=== PATIENT | male | born 1970 | race Caucasian/White ===

== ENCOUNTER 2019-04-22 20:23 | Emergency (ER) | payer OTHER | END 2019-04-22 23:21 | disposition home or self-care (01) | LOC: JER 20:23 → JERFT 23:21 ==

== ENCOUNTER 2019-09-29 08:51 | Day surgery (SDC) | payer OTHER ==
[2019-09-28 12:41] VITALS: BMI 33.0
[2019-09-29 10:23] VITALS: TEMP 98.2
[2019-09-29 14:16] VITALS: BP 113/75; PULSE 71
--- NOTE | 2019-10-02 17:07 | PATH ---
Surgical Pathology Report Patient Name: OSMAN CIFUENTES [facility]. Rec. #: [id number] /Age/Gender: 1970 (Age: 49) / M Account: [id number] Location: U-ENDOSCOPY Taken: 09/29/2019 Received: 09/29/2019 Reported: 10/02/2019 Physicians: Donny Galloway D.O. Specimen(s) Received A: SIGMOID POLYPS B: RECTAL POLYP C: RECTUM D: PERIANAL POLYP Clinical History Colon screening Postoperative diagnosis: Diverticulosis, polyps Final Diagnosis A. SIGMOID COLON, POLYPS, BIOPSY: TUBULAR ADENOMA. HYPERPLASTIC POLYP. B. RECTAL POLYP, POLYPECTOMY: SESSILE SERRATED POLYP. C. RECTUM, BIOPSY: COLONIC MUCOSA WITH FOCAL ACTIVE COLITIS. SEE COMMENT. D. PERIANAL POLYP, BIOPSY: POLYPOID SQUAMOUS MUCOSA WITH DILATED VESSELS AND FIBROUS STROMA SUGGESTIVE OF FIBROEPITHELIAL POLYP. HPV IN SITU HYBRIDIZATION (HIGH AND LOW RISK), ARE NEGATIVE. Comment: Part C, Findings are non-specific. Although acute self-limited colitis is a consideration, among other conditions, the possibility of early inflammatory bowel disease cannot be completely excluded. Suggest clinical and endoscopic correlation. Electronically Signed Hiwot Bailey M.D. Gross Description A. Received in formalin, labeled "biopsy sigmoid polyps" are 2 cavanaugh, irregular portions of soft tissue measuring 0.2 and 0.4 cm. in greatest dimension. The specimens are submitted in toto in one cassette. B. Received in formalin, labeled "rectal polyp" is a cavanaugh, irregular portion of soft tissue measuring 0.4 cm. in greatest dimension. The specimen is submitted in toto in one cassette. C. Received in formalin, labeled "biopsy rectum" are 2 cavanaugh, irregular portions of soft tissue measuring 0.1 and 0.2 cm. in greatest dimension. The specimens are submitted in toto in one cassette. D. Received in formalin, labeled "biopsy perianal polyp" is a cavanaugh, irregular portion of soft tissue measuring 0.2 cm. in greatest dimension. The specimen is submitted in toto in one cassette. 09/29/201909/29/2019
== END 2019-09-29 11:15 | disposition home or self-care (01) ==
LOC: JASU-ENDO 08:51
PROVIDERS: ATTEND Internal Medicine Gastroenterology
PROC: 0DBN8ZX Excision of Sigmoid Colon, Via Natural or Artificial Opening Endoscopic, Diagnostic (ICD-10-PCS; 2019-09-29)
PROC: 0DBP8ZX Excision of Rectum, Via Natural or Artificial Opening Endoscopic, Diagnostic (ICD-10-PCS; principal; 2019-09-29 08:15)
DX: K57.30 Diverticulosis of large intestine without perforation or abscess without bleeding (principal); K62.1 Rectal polyp; D12.5 Benign neoplasm of sigmoid colon; K64.4 Residual hemorrhoidal skin tags
CPT/HCPCS: 88305-TC

== ENCOUNTER 2019-10-08 10:15 | Day surgery (SDC) | payer OTHER ==
[2019-10-07 12:51] VITALS: BMI 33.0
[2019-10-08 10:56] VITALS: BP 118/74; PULSE 76; TEMP 98
== END 2019-10-08 11:30 | disposition home or self-care (01) ==
LOC: JASU-ENDO 10:15
PROVIDERS: ATTEND Internal Medicine Gastroenterology
DX: Z53.8 Procedure and treatment not carried out for other reasons (principal)

== ENCOUNTER 2019-12-08 08:24 | Day surgery (SDC) | payer OTHER ==
[2019-12-04 15:18] VITALS: BMI 33.0
[2019-12-08 10:33] VITALS: BP 122/83; PULSE 76; TEMP 98
--- NOTE | 2019-12-10 15:37 | PATH ---
Surgical Pathology Report Patient Name: OSMAN CIFUENTES [facility]. Rec. #: [id number] /Age/Gender: 1970 (Age: 49) / M Account: [id number] Location: U-ENDOSCOPY Taken: 12/08/2019 Received: 12/08/2019 Reported: 12/10/2019 Physicians: Donny Galloway D.O. Specimen(s) Received BX BODY Clinical History GERD Postoperative diagnosis: Gastritis Final Diagnosis BODY OF STOMACH, BIOPSY: GASTRIC MUCOSA WITH ACTIVE CHRONIC GASTRITIS. IMMUNOSTAIN FOR H. PYLORI IS POSITIVE. NEGATIVE FOR INTESTINAL METAPLASIA. Immunohistochemistry stain H. Pylori performed at [place], [place] ([id number]) interpreted at [facility]. Positive and negative controls (internal if applicable) show appropriate results. Electronically Signed Salvador Do M.D. Gross Description Received in formalin, labeled "biopsy body of stomach" are 4 cavanaugh, irregular portions of soft tissue ranging from 0.1-0.6 cm. in greatest dimension. The specimens are submitted in toto in one cassette. /12/08/2019 saudi12/08/2019
== END 2019-12-08 10:20 | disposition home or self-care (01) ==
LOC: JASU-ENDO 08:24
PROVIDERS: ATTEND Internal Medicine Gastroenterology
PROC: 0DB68ZX Excision of Stomach, Via Natural or Artificial Opening Endoscopic, Diagnostic (ICD-10-PCS; principal; 2019-12-08 09:00)
DX: K29.50 Unspecified chronic gastritis without bleeding (principal); B96.81 Helicobacter pylori [H. pylori] as the cause of diseases classified elsewhere

== ENCOUNTER 2020-09-20 19:48 | Emergency (ER) | payer OTHER ==
[2020-09-20 20:02] VITALS: BP 128/88; PULSE 81; TEMP 98.4; BMI 32.3
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
== END 2020-09-20 20:33 | disposition home or self-care (01) ==
LOC: JER 19:48 → JERFT 19:48
DX: S80.02XA Contusion of left knee, initial encounter (principal); S16.1XXA Strain of muscle, fascia and tendon at neck level, initial encounter
CPT/HCPCS: 99283-25

== ENCOUNTER 2023-03-02 13:13 | Emergency (ER) | payer OTHER ==
[2023-03-02 13:29] VITALS: BP 116/65; PULSE 76; RESP 18; TEMP 98.3; BMI 29.8
[2023-03-02] MEDS ORDERED: SODIUM CHLORIDE 0.9% 500 ML INFUS.BAG IV ONE (14:32)
[2023-03-02] MEDS ORDERED: KETOROLAC TROMETHAMINE 15 MG/ML VIAL IVPUSH ONE (14:32)
[2023-03-02] MEDS ORDERED: KETOROLAC TROMETHAMINE 15 MG/ML VIAL ONE (14:40)
[2023-03-02 15:25] LABS: BASO % 0.5 % (0-2.0); EOS % 0.4 % (0-4.5); HEMATOCRIT 38.9 % (35.4-49); HEMOGLOBIN 13.4 GM/dL (11.7-16.9); LYMPH % 32.8 % (8-40); MCH 29.5 pg (25.7-33.7); MCHC 34.3 g/dl (32.0-35.9); MEAN CELL VOLUME 85.8 fl (80-96); MONO % 5.2 % (3.8-10.2); NEUT % 61.1 % (42.8-82.8); PLATELET COUNT 182 10^3/uL (134-434); RBC 4.54 M/mm3 (4.00-5.60); RDW 13.7 % (11.9-15.9); WHITE BLOOD COUNT 5.3 K/mm3 (4.0-10.0)
[2023-03-02 15:54] LABS: ALBUMIN 3.8 g/dl (3.4-5.0); BLOOD UREA NITROGEN 13.8 mg/dL (7-18); CALCIUM 9.2 mg/dL (8.5-10.1)
[2023-03-02 15:58] LABS: CREATININE 0.6 mg/dL (0.55-1.3)
[2023-03-02 15:59] LABS: BILIRUBIN,TOTAL 0.5 mg/dL (0.2-1); TOT PROT 7.3 g/dl (6.4-8.2)
[2023-03-02] MEDS ORDERED: ACETAMINOPHEN 1000 MG/100 ML BAG IVPB ONE (16:26)
[2023-03-02] MEDS ORDERED: METHOCARBAMOL 500 MG TABLET PO ONE ×2 (16:26→20:48)
[2023-03-02] MEDS ORDERED: LIDOCAINE 5% TOPICAL PATCH TP ONE (16:26)
[2023-03-02] MEDS ORDERED: METHOCARBAMOL 500 MG TABLET ONE ×2 (16:36→20:49)
[2023-03-02] MEDS ORDERED: ACETAMINOPHEN INJECTION 100 ML IVPB ONE (16:36)
[2023-03-02] MEDS ORDERED: LIDOCAINE 5% TOPICAL PATCH ONE (16:36)
[2023-03-02 16:45] LABS: URINE APPEARANCE CLEAR; URINE COLOR YELLOW
[2023-03-02 16:46] LABS: URINE BILIRUBIN NEGATIVE (NEGATIVE)
[2023-03-02 16:47] LABS: PH,URINE 5.5 (5.0-8.0); URINE GLUCOSE (UA) 3+ (NEGATIVE); URINE KETONE 3+ (NEGATIVE); URINE LEUK ESTERASE NEGATIVE (NEGATIVE); URINE NITRITE NEGATIVE (NEGATIVE); URINE PROTEIN NEGATIVE (NEGATIVE); URINE UROBILINOGEN 0.2 mg/dL (0.2-1.0)
[2023-03-02 16:48] LABS: EPI CELLS 5 /uL (0-25.1); HYALINE CASTS 0.12 /uL (0-3.1); URINE BACTERIA 15 /uL (0-1359); URINE RBC 18 /uL (0-23.9); URINE WBC 8 /uL (0-25.8)
[2023-03-02] MEDS ORDERED: KETOROLAC TROMETHAMINE 30 MG/1 ML VIAL IVPUSH ONE (20:48)
[2023-03-02] MEDS ORDERED: KETOROLAC TROMETHAMINE 30 MG/1 ML VIAL ONE (20:50)
[2023-03-02] MEDS ORDERED: LIDOCAINE PATCH REMOVAL MC SCH (22:00)
== END 2023-03-02 20:57 | disposition home or self-care (01) ==
LOC: JER 13:13
PROC: 3E033NZ Introduction of Analgesics, Hypnotics, Sedatives into Peripheral Vein, Percutaneous Approach (ICD-10-PCS; principal; 2023-03-02)
PROC: 3E0333Z Introduction of Anti-inflammatory into Peripheral Vein, Percutaneous Approach (ICD-10-PCS; 2023-03-02)
DX: R10.9 Unspecified abdominal pain (principal); E11.9 Type 2 diabetes mellitus without complications; E30.0 Delayed puberty; N50.811 Right testicular pain; Z79.84 Long term (current) use of oral hypoglycemic drugs; Z20.822 Contact with and (suspected) exposure to COVID-19
CPT/HCPCS: 0241U-QW; 36415; 74176-TC; 74177-TC; 80053; 81003; 83036; 83735; 84443; 85025; 87086; 99285-25; Q9967

== ENCOUNTER 2023-06-24 04:40 | Emergency (ER) | payer OTHER ==
[2023-06-24 04:53] VITALS: BMI 30.7
[2023-06-24] MEDS ORDERED: KETOROLAC TROMETHAMINE 30 MG/1 ML VIAL IM ONE (05:09)
[2023-06-24] MEDS ORDERED: DEXAMETHASONE SOD PHOSPHATE 10 MG/1 ML VIAL IM ONE (05:10)
[2023-06-24] MEDS ORDERED: DEXAMETHASONE SOD PHOSPHATE 10 MG/1 ML VIAL ONE (05:19)
[2023-06-24] MEDS ORDERED: KETOROLAC TROMETHAMINE 30 MG/1 ML VIAL ONE (05:19)
[2023-06-24 06:59] LABS: THROAT:GRP A STREP DETECTED (NOTDETECTED)
[2023-06-24 07:36] VITALS: BP 102/71; PULSE 80; RESP 16; TEMP 97.8
== END 2023-06-24 07:34 | disposition home or self-care (01) ==
LOC: JER 04:40
PROC: 3E0233Z Introduction of Anti-inflammatory into Muscle, Percutaneous Approach (ICD-10-PCS; principal; 2023-06-24)
PROC: 3E023GC Introduction of Other Therapeutic Substance into Muscle, Percutaneous Approach (ICD-10-PCS; 2023-06-24)
DX: R07.0 Pain in throat (principal); R13.10 Dysphagia, unspecified; R05.9 Cough, unspecified; J02.0 Streptococcal pharyngitis; Z20.822 Contact with and (suspected) exposure to COVID-19
CPT/HCPCS: 0241U-QW; 87651; 99284-25; J1100

== ENCOUNTER 2023-11-01 16:06 | Emergency (ER) | payer OTHER ==
[2023-11-01 16:16] VITALS: BP 114/72; PULSE 78; RESP 18; TEMP 97.6; BMI 33.4
[2023-11-01] MEDS ORDERED: ONDANSETRON 4 MG/2 ML VIAL IVPUSH ONE (16:49)
[2023-11-01] MEDS ORDERED: FAMOTIDINE 20 MG/50 ML IVPB 20 MG/50 ML MG IVPB ONE ×2 (16:49→17:42)
[2023-11-01] MEDS ORDERED: SODIUM CHLORIDE 0.9% 500 ML INFUS.BAG IV ONE (16:49)
[2023-11-01] MEDS ORDERED: ONDANSETRON 4 MG/2 ML VIAL ONE (17:42)
[2023-11-01 17:48] LABS: BASO % 0.6 % (0-2.0); EOS % 1.4 % (0-4.5); HEMATOCRIT 42.9 % (35.4-49); HEMOGLOBIN 14.2 GM/dL (11.7-16.9); LYMPH % 26.4 % (8-40); MCHC 33.1 g/dl (32.0-35.9); MEAN CELL VOLUME 87.4 fl (80-96); MONO % 6.9 % (3.8-10.2); NEUT % 64.7 % (42.8-82.8); PLATELET COUNT 177 10^3/uL (134-434); RBC 4.91 M/mm3 (4.00-5.60); RDW 15.1 % (11.9-15.9); WHITE BLOOD COUNT 4.7 K/mm3 (4.0-10.0)
[2023-11-01 17:53] LABS: EPI CELLS 1 /uL (0-25.1); HYALINE CASTS 1 /uL (0-3.1); PH,URINE 5.5 (5.0-8.0); URINE APPEARANCE CLEAR; URINE BACTERIA 7 /uL (0-1359); URINE BILIRUBIN NEGATIVE (NEGATIVE); URINE COLOR DK YELLOW; URINE GLUCOSE (UA) NEGATIVE (NEGATIVE); URINE KETONE TRACE (NEGATIVE); URINE LEUK ESTERASE NEGATIVE (NEGATIVE); URINE NITRITE NEGATIVE (NEGATIVE); URINE PROTEIN 1+ (NEGATIVE); URINE RBC 8 /uL (0-23.9); URINE WBC 8 /uL (0-25.8)
[2023-11-01 18:07] LABS: POTASSIUM 3.5 mmol/L (3.5-5.1)
[2023-11-01 18:09] LABS: ALBUMIN 3.6 g/dl (3.4-5.0); BLOOD UREA NITROGEN 14.5 mg/dL (7-18); CALCIUM 8.5 mg/dL (8.5-10.1)
[2023-11-01 18:12] LABS: CREATININE 0.8 mg/dL (0.55-1.3)
[2023-11-01 18:14] LABS: BILIRUBIN,TOTAL 0.4 mg/dL (0.2-1); TOT PROT 7.2 g/dl (6.4-8.2)
== END 2023-11-01 19:50 | disposition home or self-care (01) ==
LOC: JER 16:06
PROC: 3E033GC Introduction of Other Therapeutic Substance into Peripheral Vein, Percutaneous Approach (ICD-10-PCS; principal; 2023-11-01)
PROC: 3E033GC Introduction of Other Therapeutic Substance into Peripheral Vein, Percutaneous Approach (ICD-10-PCS; 2023-11-01)
DX: R11.2 Nausea with vomiting, unspecified (principal); R19.7 Diarrhea, unspecified; R10.13 Epigastric pain; K52.9 Noninfective gastroenteritis and colitis, unspecified; Z20.822 Contact with and (suspected) exposure to COVID-19
CPT/HCPCS: 0241U-QW; 36415; 80053; 81003; 83690; 85025; 87086; 99284-25

== ENCOUNTER 2023-11-08 11:33 | Emergency (ER) | payer OTHER ==
[2023-11-08 11:41] VITALS: BP 124/71; PULSE 82; RESP 18; TEMP 97.6; BMI 33.3
[2023-11-08] MEDS ORDERED: ACETAMINOPHEN 500 MG TABLET (FP) PO ONE (12:22)
[2023-11-08] MEDS ORDERED: IBUPROFEN 600 MG TABLET (FP) PO ONE ×2 (12:22→12:26)
[2023-11-08] MEDS ORDERED: ACETAMINOPHEN 500 MG TABLET (FP) ONE (12:26)
== END 2023-11-08 12:51 | disposition home or self-care (01) ==
LOC: JERFT 11:33
DX: M25.532 Pain in left wrist (principal); X58.XXXA Exposure to other specified factors, initial encounter; Y92.000 Kitchen of unspecified non-institutional (private) residence as the place of occurrence of the external cause; Y99.0 Civilian activity done for income or pay
CPT/HCPCS: 73110-TC-LT-FY; 99283-25

== ENCOUNTER 2025-04-26 05:59 | Day surgery (SDC) | payer OTHER ==
[2025-04-15 12:27] VITALS: BMI 36.7
[2025-04-26 09:03] VITALS: TEMP 98.3
[2025-04-26 09:38] VITALS: BP 100/62; PULSE 72; RESP 16
== END 2025-04-26 10:00 | disposition home or self-care (01) ==
LOC: JASU-ENDO 05:59
PROVIDERS: ATTEND Internal Medicine Gastroenterology
PROC: 0DBN8ZX Excision of Sigmoid Colon, Via Natural or Artificial Opening Endoscopic, Diagnostic (ICD-10-PCS; 2025-04-26)
PROC: 0DBM8ZX Excision of Descending Colon, Via Natural or Artificial Opening Endoscopic, Diagnostic (ICD-10-PCS; principal; 2025-04-26 08:00)
DX: Z12.11 Encounter for screening for malignant neoplasm of colon (principal); K63.5 Polyp of colon; K64.8 Other hemorrhoids; K57.30 Diverticulosis of large intestine without perforation or abscess without bleeding; Z86.0100 Personal history of colon polyps, unspecified
CPT/HCPCS: 82962; 88305-TC